=== PATIENT | male | born 1985 | race Caucasian/White ===

== ENCOUNTER 2018-09-22 09:26 | Emergency (ER) | payer OTHER ==
[2018-09-22] MEDS: METHOCARBAMOL 750 MG TAB PO (10:22)
[2018-09-22] MEDS: KETOROLAC 30 MG INJ IM (10:22)
== END 2018-09-22 11:49 | disposition home or self-care (01) ==
LOC: FTE 09:26
DX: S99.911A Unspecified injury of right ankle, initial encounter (principal); F17.210 Nicotine dependence, cigarettes, uncomplicated; W01.0XXA Fall on same level from slipping, tripping and stumbling without subsequent striking against object, initial encounter; Y92.9 Unspecified place or not applicable
CPT/HCPCS: 73610; 73610-RT; 96372; 99284-25